=== PATIENT | male | born 1990 | race Asian ===

== ENCOUNTER 2023-04-12 09:56 | Outpatient (CLI) | payer OTHER ==
[~2023-04-12 09:56] MED LIST: GADOBUTROL 10 MMOL/10 ML VIAL ONE
[2023-04-12] MEDS ORDERED: GADOBUTROL 10 MMOL/10 ML VIAL IVP ONE (14:08)
--- NOTE | 2023-04-12 15:48 | MRI Report ---
PROCEDURE: BRAIN W/WO INDICATIONS: HYPERPROLACTINEMIA CONTRAST: gadavist 9.1ml TECHNIQUE: Noncontrast sagittal and axial FLAIR, axial gradient echo, axial diffusion and ADC through the brain. Thin-slice sagittal and coronal T1 spin echo, coronal T2 fast spin echo through the pituitary. Aft er the administration contrast, optional dynamic coronal T1 spin echo, thin-slice coronal and sagitta l T1 spin echo images through the pituitary fossa; axial T1 spin echo with fat saturation through the brain. COMPARISON: None. FINDINGS: Image quality: Excellent. Pituitary Gland: Pituitary gland is normal in size and placement. CSF Spaces: Ventricles are normal in size and shape. Basal cisterns are patent. No extra-axial flu id collections. Brain: No intracranial bleeds or mass effects. No abnormal intracranial enhancement. Quintana-white ma tter interface is intact. Diffusion weighted images demonstrate no acute ischemic insults. Brainste m is normal. Normal intravascular flow voids are present. Skull and face: Calvarial marrow is normal in signal. Orbits appear normal. Sinuses: Sinuses and mastoids are clear. IMPRESSION: 1. No evidence of pituitary microadenoma. 2. Unremarkable brain MRI with and without contrast. Normal appearance of brain parenchyma. No eviden ce acute intracranial process. Reviewed by: Gaston Gomez MD on 04/12/2023 3:47 PM PDT Approved by: Gaston Gomez MD on 04/12/2023 3:47 PM PDT Station ID: [id number]
== END 2023-04-12 09:57 | disposition home or self-care (01) ==
LOC: DI 09:56
PROVIDERS: ATTEND Nurse Practitioner Family
DX: E22.1 Hyperprolactinemia (principal)
CPT/HCPCS: 70553; A9585

== ENCOUNTER 2023-08-02 16:43 | Emergency (ER) | payer OTHER ==
[2023-08-02 17:09] VITALS: BP 123/75; O2SAT 97
--- NOTE | 2023-08-02 17:32 | XRAY Report ---
PROCEDURE: Finger(s) RT INDICATIONS: Trauma TECHNIQUE: AP hand, 2 views of the right third finger(s) acquired. COMPARISON: None. FINDINGS: Bones: No fractures or dislocations. No suspicious bony lesions. Soft tissues: No suspicious soft tissue calcifications or masses. IMPRESSION: No acute bony abnormality. Reviewed by: Mayra Quevedo MD on 08/02/2023 5:31 PM PST Approved by: Mayra Quevedo MD on 08/02/2023 5:31 PM PST Station ID: [id number]
--- NOTE | 2023-08-02 17:34 | ED Physician Documentation ---
PD HPI UPPER EXT INJURY - Stated complaint Stated Complaint: RT HAND INJ - Chief complaint Chief Complaint: Trauma Ext - History obtained from History obtained from: Patient - Additonal information Additional information: The patient comes to the emergency department chief complaint of Right middle finger pain after a crush injury 4 days ago. He states that he had a subungual hematoma and self performed trephination. However, his distal fingers continued to hurt and he is concerned that he may sustained a fracture. No other injuries or complaints. No skin breakage. PD PAST MEDICAL HISTORY - Past Medical History Past Medical History: No Cardiovascular: None Respiratory: None Neuro: None Endocrine/Autoimmune: None GI: None : None HEENT: None Psych: None Musculoskeletal: None Derm: None - Past Surgical History Past Surgical History: No - Present Medications Home Medications: Ambulatory Orders Medication Instructions Recorded Confirmed No Known Home Medications 08/02/23 08/02/23 - Allergies Allergies/Adverse Reactions: Allergies Allergy/AdvReac Type Severity Reaction Status Date / Time No Known Drug Allergies Allergy Verified 08/02/23 16:48 - Social History Does the pt smoke?: No Smoking Status: Never smoker Does the pt drink ETOH?: Yes Does the pt have substance abuse?: No - Immunizations Immunizations are current?: Yes PD ED PE NORMAL - Vitals Vital signs reviewed: Yes - General General: Alert and oriented X 3, No acute distress, Well developed/nourished - HEENT HEENT: Atraumatic, PERRL, EOMI, Moist mucous membranes - Neck Neck: Supple, no meningeal sign - Cardiac Cardiac: Strong equal pulses - Respiratory Respiratory: No respiratory distress - Derm Derm: Warm and dry, Other (Right middle finger subungual hematoma. No erythema or edema of the finger.) - Extremities Extremities: No deformity, Other (General tenderness to palpation of Right middle fingertip without palpable deformity. Able to resist pressure at the DIP with both flexion and extension.) - Neuro Neuro: Alert and oriented X 3 - Psych Psych: Normal mood, Normal affect Results - Vitals Vitals: Vital Signs - 24 hr 08/02/23 16:50 Temperature 36.4 C L Heart Rate 56 L Respiratory 16 Rate Blood Pressure 123/75 O2 Saturation 97 Oxygen O2 Source Room air - Rads (name of study) Right hand x-ray series Relevant Findings:: Final report received, See rad report (Negative) PD Medical Decision Making - ED course Complexity details: reviewed results, re-evaluated patient, considered differential, d/w patient ED course: The patient's x-ray series was negative. We have discussed symptomatic management at home as well as the usual indications for return. Departure - Departure Disposition: 01 Home, Self Care Clinical Impression: Crushing injury of finger of right hand Subungual hematoma of finger of right hand Qualifiers: Encounter type: initial encounter Qualified Code(s): S60.10XA - Contusion of unspecified finger with damage to nail, initial encounter Condition: Stable Instructions: ED Crush Injury Finger No Fx Comments: Your x-rays look goodno fracture.
== END 2023-08-02 17:41 | disposition home or self-care (01) ==
LOC: ED 16:43
DX: S67.192A Crushing injury of right middle finger, initial encounter (principal); S60.131A Contusion of right middle finger with damage to nail, initial encounter; W23.1XXA Caught, crushed, jammed, or pinched between stationary objects, initial encounter
CPT/HCPCS: 99283